=== PATIENT | female | born 1950 | race Caucasian/White ===

== ENCOUNTER 2016-11-19 20:56 | Emergency (ER) | payer MEDICARE, BC ==
[~2016-11-19] VITALS: Ht 180.3 cm; Wt 66.8 kg
[2016-11-19 21:04] VITALS: TEMP 98
[2016-11-19] MEDS ORDERED: CALCIUM 600/VIT1 CAP PO (21:48)
[2016-11-19] MEDS ORDERED: THE MEDICINE S200 M2 PO (21:49)
[2016-11-19] MEDS ORDERED: ASPIRIN E.C. 8181 MG PO (21:49)
[2016-11-19] MEDS ORDERED: MULTI VITAMINS1 TAB PO (21:51)
[2016-11-19] MEDS ORDERED: ACTONEL150 MG PO (21:52)
[2016-11-19] MEDS ORDERED: NORCO 325 MG-51 TAB PO (23:24)
[2016-11-19 23:37] VITALS: BP 141/70; PULSE 83
== END 2016-11-20 00:15 | disposition home or self-care (01) ==
LOC: COL.ER 20:56
DX: S52.502A Unspecified fracture of the lower end of left radius, initial encounter for closed fracture (principal); S52.602A Unspecified fracture of lower end of left ulna, initial encounter for closed fracture; W01.10XA Fall on same level from slipping, tripping and stumbling with subsequent striking against unspecified object, initial encounter; Y92.833 Campsite as the place of occurrence of the external cause; M81.0 Age-related osteoporosis without current pathological fracture
CPT/HCPCS: J2270; J2405; J2704; J7030